=== PATIENT | female | born 1950 | race Hispanic/Latino ===

== ENCOUNTER 2018-09-14 12:32 | Emergency (ER) | payer MEDICARE ==
--- OUTSIDE RECORDS SUMMARY | 2018-09-14 12:34 | XMS REPORT ---
:1950 [facility] Address [address] [place] [address] Dr. Cordova [address] [place] [id number] Care Team Providers Name Role Phone Unavailable Unavailable Unavailable Problems This patient has no known problems. Allergies, Adverse Reactions, Alerts This patient has no known allergies or adverse reactions. Medications This patient has no known medications.
--- OUTSIDE RECORDS SUMMARY | 2018-09-14 12:35 | XMS REPORT ---
:1950 Author Organization [employer] Care Team Providers Name Role Phone Ml Reyes Provider Role Unavailable Allergies, Adverse Reactions, Alerts Substance Reaction Event Type aspirin Info Not Available Drug Allergy Problems Problem Type Condition Code Onset Dates Condition Status Assessment Well woman exam with routine Z01.419 Active gynecological exam Problem Hypertension, unspecified type I10 Active Problem Type 2 diabetes mellitus with E11.22 Active diabetic chronic kidney disease Problem Chronic kidney disease, stage 4 N18.4 Active (severe) Problem intermediate current use of insulin Z79.4 Active Problem Other specified postprocedural Z98.890 Active states Problem Stage 4 chronic kidney disease N18.4 Active Problem Personal history of malignant Z85.820 Active melanoma of skin Problem BMI 36.0-36.9,adult Z68.36 Active Assessment Hypertension, unspecified type I10 Active Assessment BMI 36.0-36.9,adult Z68.36 Active Assessment intermediate current use of insulin Z79.4 Active Assessment Chronic kidney disease, stage 4 N18.4 Active (severe) Assessment Other specified postprocedural Z98.890 Active states Assessment Type 2 diabetes mellitus with E11.22 Active diabetic chronic kidney disease Assessment Personal history of malignant Z85.820 Active melanoma of skin Assessment Stage 4 chronic kidney disease N18.4 Active Medications Medication Code Code Instructions Start End Status Dosage System Date Date Sevelamer [facility] 30891617726 800 MG Orally Active 1 tablet Carbonate Three times a with meals day Nateglinide [facility] 90384208508 60 MG Orally Active 1 tablet Three times a before day meals atorvastatin ND 20971385496 20mg Active 1 tablet by mouth at bedtime Oxybutynin ND 48194839225 5 MG Orally Active 1 tablet Chloride Twice a day GlipiZIDE ND 63091642910 10 MG Orally Active 1 tablet Once a day Amlodipine ND 87219639544 10 MG Orally Active 1 tablet Besylate Once a day Levemir Flexpen NDC 0 Active not defined Metoprolol-Christmas [facility] 74127711934 100-25 MG Active 1 tablet chlorothiazide Orally Once a with a day meal Furosemide [facility] 25254012046 Oral Active 1 tab Results No Known Results Summary Purpose [employer] Submission
[2018-09-14] MEDS ORDERED: FENTANYL CITR 100 MCG/2 ML ONE (12:59)
[2018-09-14] MEDS ORDERED: ONDANSETRON 4 MG/2 ML VIAL ONE ×2 (12:59→14:17)
[2018-09-14 13:25] LABS: Hematocrit 31.9 % (36.0-45.0); RBC Red Blood Cell Count 3.78 M/uL (3.86-4.86)
[2018-09-14 13:26] LABS: Absolute Lymphocytes (CBC) 2.3 K/uL (0.7-4.9); Absolute Monocytes 0.4 K/uL (0.1-1.3); Absolute Neutrophil 5.8 K/uL (1.8-8.0); Basophils % 0.3 % (0-1.3); Eosinophils % 2.6 % (0-4.4); Lymphocytes % 26.5 % (15.3-44.8); MPV 10.1 fL (7.6-11.3); Monocytes % 4.9 % (3.3-12.3)
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
[2018-09-14 13:50] LABS: Bilirubin Direct 0.1 mg/dL (0-0.2); Bilirubin Total 0.4 mg/dL (0.2-1.0); Potassium 3.7 mmol/L (3.5-5.1)
[2018-09-14] MEDS ORDERED: ACETAMINOPHEN 500 MG TAB ONE ×2 (13:57→14:17)
[2018-09-14 14:20] LABS: Urine Blood TRACE (NEG); Urine Glucose NEGATIVE (NEG); Urine Protein 2+ (NEG); Urine Specific Gravity 1.015 (1.005-1.030)
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
[2018-09-14 14:44] LABS: Urine Bacteria NONE SEEN /HPF (<20); Urine Culture Reflex Order NOT NEEDED; Urine RBC <5 /HPF (NONE SEEN)
== END 2018-09-14 14:43 | disposition home or self-care (01) ==
LOC: ER 12:32
DX: S16.1XXA Strain of muscle, fascia and tendon at neck level, initial encounter (principal); S39.012A Strain of muscle, fascia and tendon of lower back, initial encounter; V49.40XA Driver injured in collision with unspecified motor vehicles in traffic accident, initial encounter; E11.22 Type 2 diabetes mellitus with diabetic chronic kidney disease; I12.0 Hypertensive chronic kidney disease with stage 5 chronic kidney disease or end stage renal disease; N18.6 End stage renal disease; Z79.4 Long term (current) use of insulin
CPT/HCPCS: 85025; 80048; 36415; 80076; 70450; 71250; 72125; 71045; 72170; 96375; 96374; 99285; J3010; J2405 ×2; 81003; 81015